=== PATIENT | male | born 1970 | race Caucasian/White ===

== ENCOUNTER → 2023-07-17 09:14 | Outpatient (CLI) | payer OTHER, SELFPAY ==
[2023-07-17 19:40] LABS: HEMOLYSIS < 15 (0-50)
[2023-07-17 19:45] LABS: Alanine Aminotransferase 18 IU/L (<50); Albumin 3.7 g/dL (3.5-5.0); Albumin Globulin Ratio 1.6 (1.0-2.8); Alkaline Phosphatase 69 U/L (38-126); Aspartate Aminotransferase 28 IU/L (17-59); Bilirubin Total 0.9 mg/dL (0.2-1.3); Blood Urea Nitrogen 20 mg/dL (9-20); Calcium 8.8 mg/dL (8.4-10.2); Carbon Dioxide 31 mmol/L (22-32); Chloride 103 mmol/L (98-107); Cholesterol 206 mg/dL (140-199); Estimated Glomerular Filt Rate > 60 mL/min (>60); Globulin 2.3 g/dL (1.7-4.1); Glucose 92 mg/dL (70-100); HDL Cholesterol 88 mg/dL (40-60); LDL Cholesterol Calculated 104 mg/dL (<100); Potassium 3.9 mmol/L (3.4-5.1); Sodium 137 mmol/L (137-145); Triglycerides 68 mg/dL (35-150)
[2023-07-18 16:35] LABS: Prostate Specific Antigen Scrn 0.264 ng/mL (0.1-4.0)
== END ==
PROVIDERS: PCP Physician Assistant; Visit Provider Physician Assistant
DX: Z13.6 Encounter for screening for cardiovascular disorders (principal); Z86.39 Personal history of other endocrine, nutritional and metabolic disease; Z12.5 Encounter for screening for malignant neoplasm of prostate
CPT/HCPCS: 80053; 80061; G0103

== ENCOUNTER 2025-01-30 08:07 | Day surgery (SDC) | payer OTHER, SELFPAY ==
--- NOTE | 2025-01-30 | PATH_ITS ---
[facility] Accession Number: [id number] No. of containers..01 Tissue . 01 Material submitted: . rectum - RECTAL POLYPS . 01 Diagnosis: RECTUM: Hyperplastic polyps. MRV 02/05/2025 1040 Local . 01 Electronically signed: . Leonie Davis DO, Pathologist NPI- [id number] . 01 Gross description: . RECTAL POLYPS: Received in formalin are 3 fragment(s) of scott, soft tissue measuring 0.3 x 0.2 x 0.2 cm to 0.4 x 0.4 x 0.3 cm submitted entirely in 1 cassette(s) /RACHEL 01/30/2025 2352 Local . 01 Pathologist provided ICD-10: Z12.11 . 01 CPT . 450557 Specimen Comment: A courtesy copy of this report has been sent to [phone] Performed at: [address] [facility] [address], [place], [place] [id number] MD Erasmo Andrea MD Phone: [phone]
[2025-01-30] MEDS: LACTATED RINGERS 1,000 ML 84 ML IV (08:18)
[2025-01-30 08:22] VITALS: BP 122/80; PULSE 98; RESP 16; TEMP 36.3; O2SAT 98
--- NOTE | 2025-01-30 08:39 | P.HP_ITS ---
History of Present Illness History of Present Illness Date Patient Seen: 01/30/25 Time Patient Seen: 08:39 Chief complaint: Screening Colonoscopy Narrative: Elvis is a 55 year old man presenting for a colonoscopy. He had a colonoscopy elsewhere 4 years ago with findings of adenomatous polyps. He also had diverticulosis. No family history of colon cancer. [facility] Social History Smoking Status: Never smoker Meds Home Medications and Allergies Home Medications Medication Instructions Recorded Confirmed Type aspirin 81 mg tablet,delayed 81 mg PO DAILY 05/23/23 07/15/24 History release gabapentin 300 mg capsule 600 mg PO DAILY 05/23/23 07/15/24 History lorazepam 1 mg tablet 1 mg PO DAILY PRN 05/23/23 07/15/24 History sildenafil 25 mg tablet See Rx Instructions PO DAILY PRN 12/04/23 07/15/24 Rx sexual activity #10 tabs cholecalciferol (vitamin D3) 125 125 mcg PO DAILY Bone health and 07/15/24 07/15/24 History mcg (5,000 unit) tablet (Vitamin mood D3) desvenlafaxine succinate 25 mg 25 mg PO DAILY 07/15/24 07/15/24 History tablet,extended release 24 hr lisdexamfetamine 30 mg capsule 30 mg PO DAILY 07/15/24 07/15/24 History multivitamin with iron-mineral 1 tab PO DAILY Overall health 07/15/24 07/15/24 History sodium,potassium,mag sulfates 17.5 See Rx Instructions PO .COMPLEX 01/29/25 Rx gram-3.13 gram-1.6 gram oral soln #354 mL (Suprep Bowel Prep Kit) Allergies Allergy/AdvReac Type Severity Reaction Status Date / Time No Known Drug Allergies Allergy Verified 07/15/24 15:11 Exam Vital Signs (past 8 hours): - 01/30/25 08:22 Temperature 97.3 F L Pulse Rate 98 H Respiratory Rate 16 Blood Pressure 122/80 Pulse Oximetry 98 Oxygen Delivery Method Room Air Oxygen Delivery Method Room Air Const General: healthy appearing Resp Effort & Inspection: normal respiratory effort Assessment & Plan Assessment and plan (1) History of colon polyps: Status: Acute Plan We reviewed the risks and benefits of colonoscopy for colon cancer screening and a history of polyps and he would like to proceed. Time-Based Coding :: [TOTAL MINUTES] spent with patient and on the chart (including review of chart, obtaining history, exam, reviewing outside data, placing orders, documenting exam and treatment plan, and counseling patient) on [DATE]. [employer] Document charge(s): No
[2025-01-30 09:11] VITALS: BP 105/67; PULSE 78; RESP 15; TEMP 36.6; O2SAT 99
--- NOTE | 2025-01-30 09:13 | PM.OP.COLON ---
Operative Date/Time/Diagnoses Date of procedure: 01/30/25 Time of procedure: 09:13 Pre-op diagnosis: History of polyps Post-op diagnosis: same Procedure & Clinicians Study performed: Colonoscopy Same procedure as scheduled: Yes Surgeon: Victor Hugo Alcala Procedure Notes Procedure in detail: Surgeon: Victor Hugo Alcala MD Anesthesia: Timmy Reid MD Procedure: The patient was brought to the endoscopy suite, placed in left lateral decubitus position. The patient was connected to monitoring devices. A time-out was performed. Sedation was administered. Once the patient was adequately sedated, a digital rectal exam was performed and was normal. The scope was then inserted and advanced to the cecum where the appendiceal orifice was identified and photographed. The scope was then slowly withdrawn over greater than 6 minutes. The mucosa was thoroughly inspected. There were 2 small polyps in the mid rectum removed with a cold forceps and sent together. The scope was retroflexed in the rectum. The scope was straightened and removed. The patient was awakened and brought to recovery. Scope withdrawal time: 8 minutes Sedation time: 16 minutes EBL: 5 mL Findings: Two small rectal polyps Post-procedure Disposition: PACU
[2025-01-30 09:31] VITALS: BP 107/65; PULSE 75; RESP 14; TEMP 36.5; O2SAT 99
== END 2025-01-30 10:16 | disposition home or self-care (01) ==
PROVIDERS: PCP Physician Assistant; Referring Provider Surgery; Visit Provider Surgery
PROC: 0DJD8ZZ Inspection of Lower Intestinal Tract, Via Natural or Artificial Opening Endoscopic (ICD-10-PCS; CPT 45378; principal; 2025-01-30 09:00)
DX: Z12.11 Encounter for screening for malignant neoplasm of colon (principal); Z86.0100 Personal history of colon polyps, unspecified; K63.5 Polyp of colon
CPT/HCPCS: 45380; J2704

== ENCOUNTER → 2025-09-29 09:33 | Outpatient (CLI) | payer OTHER, SELFPAY ==
[2025-09-29 18:57] LABS: Add Manual Diff / Slide Review NO; Hematocrit 40.1 % (41-53); Hemoglobin 13.8 g/dL (13.5-17.5); Lymphocytes Absolute Auto 1900 /uL (1100-4500); Mean Corpuscular HGB Conc 34.4 % (30-36); Mean Corpuscular Hemoglobin 31.4 PG (26-34); Mean Corpuscular Volume 91.3 fL (80-100); Platelet Count 158 X10^3/uL (150-400)
[2025-09-29 19:03] LABS: Alanine Aminotransferase 16 IU/L (<50); Albumin 4.0 g/dL (3.5-5.0); Albumin Globulin Ratio 1.7 (1.0-2.8); Alkaline Phosphatase 71 U/L (38-126); Blood Urea Nitrogen 19 mg/dL (9-20); Calcium 8.7 mg/dL (8.4-10.2); Carbon Dioxide 30 mmol/L (22-32); Chloride 104 mmol/L (98-107); Cholesterol 224 mg/dL (140-199); Estimated Glomerular Filt Rate > 60 mL/min (>60); Globulin 2.3 g/dL (1.7-4.1); Glucose 93 mg/dL (70-99); HDL Cholesterol 104 mg/dL (40-60); HEMOLYSIS < 15 (0-50); Potassium 4.0 mmol/L (3.4-5.1); Sodium 139 mmol/L (137-145); Total Protein 6.3 g/dL (6.3-8.2); Triglycerides 70 mg/dL (35-150)
== END ==
PROVIDERS: PCP Physician Assistant; Visit Provider Physician Assistant
DX: Z13.6 Encounter for screening for cardiovascular disorders (principal); Z86.39 Personal history of other endocrine, nutritional and metabolic disease; N52.9 Male erectile dysfunction, unspecified; Z00.01 Encounter for general adult medical examination with abnormal findings; Z79.899 Other long term (current) drug therapy; Z12.5 Encounter for screening for malignant neoplasm of prostate
CPT/HCPCS: 80053; 80061; 85025; G0103